=== PATIENT | female | born 1985 | race Caucasian/White ===

== ENCOUNTER → 2017-06-12 | Outpatient (CLI) | payer OTHER ==
[~2017-06-12] MED LIST: ALBU90OI; ALBU90OI INH; ALBU90OI6 INH; AMOX500 PO; AMOX875 PO; ANTOXYBENA BOTHEARS; BECL40OI INH; BUSP5 PO; Bactrim 400-801 EACH PO; CEPH500 PO; CITA20 PO; CLON1 PO; CRUTCH4 USE; CYCL10 PO; DIAZ2 PO; DIVA500EC; DIVA500ER PO; DULO30 PO; Flexeril5 MG PO; GABA100 PO; HYDACE5 PO; HYDACE5325 PO; HYDHCL25 PO; HYDPAM25 PO; IBUP800 PO; Inderal40 MG PO; KETO10 PO; METPRE4DP PO; MONT10T PO; NAPR500 PO; NAPR550 PO; Naprosyn500 MG PO; OXYACE5T PO; PARO10 PO; PRED20 PO; PROC10 PO; PROCODE120 PO; Prednisone50 MG PO; QVAR REDIHALE10.6 G1 INH; RXNAPNA550 PO; SERT50 PO; SUMA25 PO; TOPI100 PO; TRAZ150T57; TRAZ50 PO; Ultram50 MG PO; VENL150ER PO; Ventolin/Prove6.7 GM INH; Vistaril25 MG PO; [UNRECOGNIZED DRUG - REMARK]
[2017-06-12 19:04] LABS: Specimen Source UN
[2017-06-13 08:18] LABS: Candida species (DNA Probe) Negative (NEGATIVE); G. vaginalis (DNA Probe) Positive (NEGATIVE); T. vaginalis (DNA Probe) Negative (NEGATIVE)
[2017-06-13 15:15] LABS: Source UN
== END ==
LOC: LAB 16:20
PROVIDERS: Nurse Practitioner Family
DX: N89.8 Other specified noninflammatory disorders of vagina (principal)
CPT/HCPCS: 87480; 87491; 87510; 87591; 87660

== ENCOUNTER → 2017-09-18 | Outpatient (CLI) | payer OTHER ==
[~2017-09-18] MED LIST changes: -KETO10 PO
[2017-09-18 18:55] LABS: U Benzodiazapine Screen Not Detected; U Cannabinoids Screen Not Detected; U Phencyclidine Screen Not Detected
== END ==
LOC: LAB 18:15 → LAB SHORT 18:15
PROVIDERS: Student in an Organized Health Care Education/Training Program
DX: F15.10 Other stimulant abuse, uncomplicated (principal); Z79.899 Other long term (current) drug therapy

== ENCOUNTER 2017-09-20 15:02 | Emergency (ER) | payer OTHER ==
[~2017-09-20] VITALS: Ht 157.5 cm; Wt 86.2 kg
[~2017-09-20 15:02] MED LIST changes: -CLON1 PO; -Inderal40 MG PO; -QVAR REDIHALE10.6 G1 INH; -TOPI100 PO; -VENL150ER PO
[2017-09-20] MEDS ORDERED: CLON1 PO (15:29)
[2017-09-20] MEDS ORDERED: Inderal40 MG PO (15:29)
[2017-09-20] MEDS ORDERED: TOPI100 PO (15:30)
[2017-09-20] MEDS ORDERED: QVAR REDIHALE10.6 G1 INH (15:31)
[2017-09-20] MEDS ORDERED: VENL150ER PO (15:32)
== END 2017-09-20 16:24 | disposition home or self-care (01) ==
LOC: ER 15:02
DX: B07.9 Viral wart, unspecified (principal); Z88.5 Allergy status to narcotic agent; Z79.899 Other long term (current) drug therapy; J45.909 Unspecified asthma, uncomplicated; F31.9 Bipolar disorder, unspecified
CPT/HCPCS: 99282

== ENCOUNTER → 2017-10-19 | Outpatient (CLI) | payer OTHER ==
[~2017-10-19] MED LIST changes: +CLON1 PO; +Inderal40 MG PO; +QVAR REDIHALE10.6 G1 INH; +TOPI100 PO; +VENL150ER PO
== END | disposition home or self-care (01) ==
LOC: LAB 15:12 → LAB SHORT 15:12
DX: Z51.81 Encounter for therapeutic drug level monitoring (principal); Z79.899 Other long term (current) drug therapy
CPT/HCPCS: G0480

== ENCOUNTER 2018-02-01 10:05 | Emergency (ER) | payer OTHER ==
[~2018-02-01] VITALS: Ht 157.5 cm; Wt 88.5 kg
[2018-02-01] MEDS ORDERED: KETO10 PO (10:31)
== END 2018-02-01 10:59 | disposition home or self-care (01) ==
LOC: ER 10:05
DX: M72.2 Plantar fascial fibromatosis (principal); J45.909 Unspecified asthma, uncomplicated; F31.9 Bipolar disorder, unspecified; Z88.5 Allergy status to narcotic agent; Z79.899 Other long term (current) drug therapy; Z79.51 Long term (current) use of inhaled steroids
CPT/HCPCS: 96372; 99283; J1885

== ENCOUNTER 2018-02-03 08:35 | Emergency (ER) | payer OTHER ==
[~2018-02-03 08:35] MED LIST changes: +KETO10 PO
== END 2018-02-03 09:48 | disposition left against medical advice (07) ==
LOC: ER 08:35
DX: Z53.21 Procedure and treatment not carried out due to patient leaving prior to being seen by health care provider (principal)